=== PATIENT | male | born 1960 | race Caucasian/White ===

== ENCOUNTER 2016-08-11 10:20 | Emergency (ER) | payer BC ==
[~2016-08-11] VITALS: Ht 172.7 cm; Wt 95.5 kg
[2016-08-11 10:21] VITALS: TEMP 36.6; Ht 172.7 cm; Wt 95.5 kg
[2016-08-11] MEDS ORDERED: DULO-24 PO (10:38)
[2016-08-11] MEDS ORDERED: MELO15TA4 PO (10:38)
[2016-08-11] MEDS ORDERED: LISI20TA3 PO (10:38)
[2016-08-11] MEDS ORDERED: TRAM-10 PO (10:38)
[2016-08-11] MEDS ORDERED: FLUT0.15 NAE (10:39)
[2016-08-11] MEDS ORDERED: AMOX875T PO (10:56)
[2016-08-11] MEDS ORDERED: OXYC1TAB3 PO (10:56)
[2016-08-11 11:12] VITALS: BP 136/97; PULSE 86; O2SAT 97
--- NOTE | 2016-08-11 16:58 | EMERGENCY ROOM VISIT NOTE ---
History Report prepared by Mark: Kirsty Gallagher Under the Supervision of: Dr. Tremayne Oconnell M.D. First contact with patient: 10:41 Chief Complaint: FACIAL PAIN/INJURY Stated Complaint: PAIN/INFLAMATION ON RT SIDE OF FACE History of Present Illness The patient is a 56 year old male who presents to the Emergency Room with complaints of persistent right sided face pain starting yesterday. Yesterday he had pain all day which he thought was dental/gum pain. Last night, he started getting swelling on his face and the pain is now located there. He has had this pain before at which time he went to see a dentist. He was prescribed tramadol and his pain resolved. He denies any fever, cold symptoms, testicle pain or swelling, vomiting, abdominal pain, chest pain, or SOB. He is still producing saliva. He has all his immunizations. 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 Source of History: patient Onset: yesterday Position: other (right side face) Quality: other (pain) Timing: other (persistent) Associated Symptoms: No SOB, No abdominal pain, No chest pain, No fevers, No vomiting Note: Pt denies cold symptoms, testicle pain or swelling. Review of Systems See HPI for pertinent positives & negatives. A total of 10 systems reviewed and were otherwise negative. Past Medical & Surgical Medical Problems: (1) Hypertension Family History No pertinent family history stated. Social History Smoking Status: Never Smoker Marital Status: Housing Status: lives with family Occupation Status: employed Current/Historical Medications Scheduled Amoxicillin & Pot Clavulanate (Augmentin 875-125 mg), 875 MG PO BID Duloxetine HCl (Cymbalta), 20 MG PO DAILY Fluticasone Propionate (Nasal) (Flonase Allergy Relief), 2 SPRAY KAREN DAILY Lisinopril (Prinivil), 20 MG PO DAILY Meloxicam (Meloxicam), 15 MG PO UD Scheduled PRN Oxycodone Ir (Roxicodone Ir), 5 MG PO Q4H PRN for Pain Tramadol (Ultram), 50-100 MG PO Q4H PRN for Pain Allergies Coded Allergies: No Known Allergies (Unverified , 08/11/16) Physical Exam Vital Signs Date Time Temp Pulse Resp B/P Pulse Ox O2 Delivery O2 Flow Rate FiO2 08/11/16 11:12 86 20 136/97 97 Room Air 08/11/16 10:21 36.6 81 16 148/97 97 Room Air Physical Exam Constitutional: Vital signs reviewed. Eyes: Pupils are equal round reactive to light. Conjunctiva are noninjected. ENT: Pharynx is clear without erythema or exudate. Mucous membranes are moist. Neck supple without meningeal signs. Some dental caries on the right mandibular teeth. No percussion tenderness. Tenderness to the right lower face along the jawline. No submandibular tenderness. No trismus. No uvular edema or shift. Respiratory: Clear to auscultation bilaterally. Breath sounds are equal bilaterally. Cardiovascular: Regular rate and rhythm. No rubs or gallops. GI: Soft, nondistended and nontender. Bowel sounds are present. Musculoskeletal: No peripheral edema. Integumentary: No cyanosis. Neurological: The patient is awake and alert. No focal deficits. Psychiatric: Normal affect. Medical Decision & Procedures ED Course 1044: The patient was evaluated in room C7. A complete history and physical exam was performed. 1058: I reevaluated the patient. He is resting comfortably. I discussed tonight' s findings with him. I recommended not using tramadol due to the interaction with his SSRI and increased risk of seizure. I prescribed him oxycodone, but advised him not to use it unless he needs it to go to sleep. I discussed the precautions of the medication. He verbalized agreement of the treatment plan. He was discharged home. Medical Decision This is a 56-year-old male who presents with facial pain and swelling. Differential diagnosis includes cellulitis, abscess, periapical abscess, mumps, sialoadenitis, sialolithiasis. I did perform a limited focused review of portions of the patient's old chart on the electronic medical record. The patient has had no prior visits. I did evaluate the patient as noted above. He has a localized swelling to the right jawline. I don't feel any evidence of abscess. He has no symptoms consistent with mumps or any known exposure to mumps. I did discuss the possibility of obtaining CT scan versus antibiotic treatment. The patient and his preferred antibiotic treatment at this time. Should he have any worsening symptoms he will return here for further evaluation in CAT scan. I did discharge patient with a prescription for Augmentin. He was given precautions regarding this medication and will follow closely with his doctor for recheck within 48 hours. [place] Drug Monitoring Program Search Results: patient reviewed within database Drug Monitoring Findings: No matching patients were found. Impression Primary Impression: Facial infection Scribe Attestation The scribe's documentation has been prepared under my direct and personally reviewed by me in its entirety. I confirm that the note above accurately reflects all work, treatment, procedures, and medical decision making performed by me. Departure Information Dispostion Home / Self-Care Prescriptions Oxycodone Ir (Roxicodone Ir) 5 Mg Tab 5 MG PO Q4H Y for Pain, #14 TAB Prov: Tremayne Oconnell M.D. 08/11/16 Amoxicillin & Pot Clavulanate (Augmentin 875-125 mg) 1 Tab Tab 875 MG PO BID for 10 Days, #20 TAB Prov: Tremayne Oconnell M.D. 08/11/16 Referrals No Doctor, Assigned (PCP) Forms HOME CARE DOCUMENTATION FORM, IMPORTANT VISIT INFORMATION Patient Instructions My [facility] Additional Instructions You have been examined and treated today on an emergency basis only. This is not a substitute for, or an effort to provide, complete comprehensive medical care. It is impossible to recognize and treat all injuries or illnesses in a single emergency department visit. It is therefore important that you follow up closely with your physician within 48 hours for recheck. Call as soon as possible for an appointment. Return for worsening symptoms or if you develop fever, vomiting, difficulty breathing, severe headache or any other concerning symptoms.
== END 2016-08-11 11:10 | disposition home or self-care (01) ==
LOC: C.EDB 10:21 → C.EDC 11:10
DX: B99.9 Unspecified infectious disease (principal); I10 Essential (primary) hypertension; Z79.899 Other long term (current) drug therapy

== ENCOUNTER 2018-11-08 15:50 | Inpatient (IN) ==
[2018-11-08] MEDS ORDERED: ONDANSETRON INJ 2 MG/ML 2 ML VIAL IV STA (16:06)
[2018-11-08] MEDS: HYDROmorphone INJ 1 MG/ML SYRINGE IV PRN ×2 (16:33→18:04)
--- NOTE | 2018-11-08 17:03 | XRay Report ---
XR hip RT 2-3V w pelvis CLINICAL HISTORY: fall, right hip pain trauma. Pain. COMPARISON: None. DISCUSSION: Subcapital fracture right hip. No evidence of dislocation. No evidence for acetabular pro trusion. There is no evidence for soft tissue swelling. IMPRESSION: Subcapital fracture right hip The above report was generated using voice recognition software. It may contain grammatical, syntax or spelling errors. Electronically signed by: Ivan Ragland M.D. 11/08/2018 5:02 PM
--- NOTE | 2018-11-08 17:37 | XRay Report ---
XR chest 1V portable CLINICAL HISTORY: hip fx trauma COMPARISON STUDY: None FINDINGS: The bones soft tissues and hemidiaphragms are normal. The cardiomediastinal silhouette is n ormal. The lungs are clear. The pulmonary vasculature is normal. IMPRESSION: Negative chest. The above report was generated using voice recognition software. It may contain grammatical, syntax or spelling errors. Electronically signed by: Ivan Ragland M.D. 11/08/2018 5:36 PM
--- NOTE | 2018-11-08 17:42 | History & Physical Report ---
Date of Service November 08, 2018 Assessment & Plan (1) Fracture of right hip: This is a 58-year-old male with PMH of hypertension and mood disorder who presents after mechanical fall at home onto his right side and was found to have subcapital fracture right hip. -Hemodynamically stable -Hip/pelvis XR with with evidence of subcapital fracture right hip -Evaluated by [facility] orthopedics, who plan for possible OR tomorrow -Lab work today with mild leukocytosis. Creatinine, GFR, coags within normal limits -CXR without acute abnormalities. EKG with sinus rhythm with sinus arrhythmia -Considered low risk based on Revised Cardiac Index for Pre-op Risk, patient with 0.4% risk of major cardiac event -NPO after midnight. Pre-op medication, pain control, IV fluids ordered -Checking CK due to patient lying on ground. If elevated, will increase LR to 150 ml/hr (2) Hypertension: Currently normotensive -Plan to hold lisinopril pre-operatively (3) Mood disorder: Continue Prozac DVT Ppx: SCDs pre-operatively Code status: FULL PCP: [facility] Dispo: Admitted to med/surg. Plan to return home once medically stable. Patient seen in collaboration with Dr. Sage. Please see addendum. History of Present Illness Chief Complaint: Mechanical fall, right hip fracture Primary Care Provider: Shreyas Pruett MD This is a 58-year-old male with PMH of hypertension and mood disorder who presents after mechanical fall at home onto his right side. Patient was walking in the kitchen when he tripped over a dog gate and fell onto his right side. Patient was on the ground for 1.5 hours thinking that pain would improve and he would be able to get up on his own. Eventually patient allowed family to help him into the car come to ED for further evaluation. Patient was found to be hemodynamically stable with evidence of subcapital fracture right hip. ED provider discussed with [facility] orthopedic surgeon on-call, Dr. Phelps, who evaluated the patient on the floor and scheduled OR case for tomorrow. Pain is described as a 9/10 and is located at R lateral hip and medial thigh. Just given second dose of Dilaudid. Denies any numbness or paresthesias distal to right hip. Denies any fever, chills, lightheadedness, visual changes, headache, chest pain, palpitations, shortness of breath, nausea, vomiting, abdominal pain, dysuria, diarrhea or constipation. Denies any history of heart disease. History of ENT surgery in the past and tolerated anesthesia without issue. Allergies Allergy/AdvReac Type Severity Reaction Status Date / Time No Known Allergies Allergy Verified 11/09/18 09:33 Home Medications Home Medications Medication Instructions Recorded Confirmed Type fluoxetine 20 mg PO DAILY 11/08/18 11/08/18 History fluticasone propionate [Flonase 2 spray INTRANASAL DAILY 11/08/18 11/08/18 His tory Allergy Relief] lisinopril 20 mg PO DAILY 11/08/18 11/08/18 History acetaminophen [Tylenol Extra 1,000 mg PO Q8 14 Days #84 tab 11/10/18 Rx Strength] aspirin [Ecotrin Low Strength] 81 mg PO BID 30 Days #60 tab 11/10/18 Rx cefadroxil 500 mg PO BID #60 cap 11/10/18 Rx sennosides-docusate sodium 1 tab PO DAILY PRN #14 tab 11/10/18 Rx [Senokot-S] Past Med/Surg History Medical History Mood disorder (Chronic) Hypertension (Chronic) Surgical History History of ear, nose, and throat (ENT) surgery (Chronic) Family History Other Cancer Social History Preferred Language: Kazakh Communication Ability: Effective 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 Physical Exam Physical Exam: General Appearance: WD/WN, in acute distress from pain, cooperative with interview and exam Head: normocephalic, atraumatic Eyes: normal inspection, PERRL, EOMI ENT: hearing grossly normal, pharynx normal (moist mucous membranes) Neck: supple, no JVD, no adenopathy Respiratory/Chest: lungs clear to auscultation. No wheezes, rales or rhonci. No respiratory distress or accessory muscle use Cardiovascular: regular rate, rhythm, no murmur, normal peripheral pulses Abdomen/GI: normal bowel sounds, soft, non-tender to palpation Extremities/Musculoskelatal: R leg externally rotated. No visible trauma. Did not assess ROM of R hip 2/2 pain. No calf tenderness, normal capillary refill, no pedal edema Neurologic/Psych: alert, normal mood/affect, oriented x 3 Skin: normal color, warm/dry Results & Data Vital Signs (Past 12 Hours) Vital Signs Temp Pulse Pulse Resp BP BP Pulse Ox 11/08/18 17:19 69 14 127/71 95 11/08/18 15:56 36.5 C 58 L 24 106/58 L 97 Laboratory Results Short CBC 11/08/18 Range/Units 17:55 WBC 12.21 H (4.8-10.8) K/uL Hgb 15.1 (14.0-18.0) g/dL Hct 44.4 (42-52) % Plt Count 174 (130-400) K/uL BMP 11/08/18 17:55 Sodium 139 Potassium 3.9 Chloride 107 Carbon Dioxide 24 BUN 16 Creatinine 0.99 Glucose 124 H Calcium 8.4 L Liver Function 11/08/18 Range/Units 17:55 Total Bilirubin 0.7 (0.2-1) mg/dl AST 23 (15-37) U/L ALT 33 (12-78) U/L Alkaline Phosphatase 99 (45-117) U/L Albumin 3.7 (3.4-5.0) gm/dl Diagnostic Findings CXR: IMPRESSION: Negative chest. Hip/Pelvis XR: IMPRESSION: Subcapital fracture right hip ECG Additional Comments: Normal sinus rhythm with sinus arrhythmia Supervising Physician Co-Signing Physician Notes Attending Addendum: Delayed entry Date of service as noted above care coordinated with KAYLEIGH Demarco please refer to her notes for full details, I agree with her notes patient seen and examined, records reviewed by myself as well on exam, patient seen resting in bed, not in distress Has pain on the right hip No chest pain, shortness of breath, dizziness Prodrome during the fall no other symptoms VS noted and reviewed oriented x3, not in distress, speaks in sentences with no effort nor accessory muscle use normal rate, regular rhythm, no murmurs clear breath sounds bilaterally non distended, soft, nontender no bipedal edema, erythema, warmth Right lower extremity externally rotated no neuro deficits WBC 12.21 Hg 15.1 Crea 2.99 Hip x-ray subcapital fracture right hip ASSESSMENT AND PLAN Right hip fracture No medical contraindication to proceed with orthopedic surgery next Orthopedic service consulted Hypertension Lisinopril held to prevent hypotension Pressure monitoring other diagnoses and plan of care as per KAYLEIGH Sage MD (1) Fracture of right hip Encounter type: initial encounter Fracture type: closed Qualified Code(s): S72.001A - Fracture of unspecified part of neck of right femur, initial encounter for closed fracture
[2018-11-08 18:09] LABS: Basophils # (auto) 0.01 K/uL (0-0.2); Basophils % (auto) 0.1 %; Eosinophils # (auto) 0.02 K/uL (0-0.5); Eosinophils % (auto) 0.2 %; Hematocrit (blood only) 44.4 % (42-52); Hemoglobin 15.1 g/dL (14.0-18.0); Immature Granulocytes # (auto) 0.04 K/uL (0.00-0.02); Immature Granulocytes % (auto) 0.3 %; Lymphocytes # (auto) 1.05 K/uL (1.2-3.4); Lymphocytes % (auto) 8.6 %; Mean Corpuscular Volume 84.6 fL (80-100); Mean Platelet Volume 9.4 fL (7.4-10.4); Monocytes # (auto) 0.84 K/uL (0.11-0.59); Monocytes % (auto) 6.9 %; Neutrophils # (auto) 10.25 K/uL (1.4-6.5); Neutrophils % (auto) 83.9 %; Platelet Count 174 K/uL (130-400); RDW Coefficient of Variation 12.6 % (11.5-14.5); RDW Standard Deviation 38.4 fL (36.4-46.3); Red Blood Count 5.25 M/uL (4.7-6.1); White Blood Count 12.21 K/uL (4.8-10.8)
[2018-11-08 18:21] LABS: Partial Thromboplastin Ratio 0.9; Partial Thromboplastin Time 23.4 Seconds (21.0-31.0); Prothrombin Time 10.7 Seconds (9.0-12.0)
[2018-11-08 18:31] LABS: Albumin Level 3.7 gm/dl (3.4-5.0); BUN Creatinine Ratio 16.6 (10-20); Calcium 8.4 mg/dl (8.5-10.1); Creatinine Clr Calc Pharmacy 88.4 ml/min; Est GFR (African American) 95.5; Est GFR (Non-African American) 82.4; Potassium 3.9 mmol/L (3.5-5.1)
[2018-11-08 18:33] LABS: Albumin Globulin Ratio 1.2 (0.9-2); Bilirubin,Total 0.7 mg/dl (0.2-1); Globulin 3.1 gm/dl (2.5-4.0); Total Protein 6.8 gm/dl (6.4-8.2)
[2018-11-08] MEDS ORDERED: BISACODYL 10 MG SUPP PR PRN (18:38)
[2018-11-08] MEDS ORDERED: MAGNESIUM HYDROXIDE SUSP 30 ML UDC PO PRN (18:38)
[2018-11-08] MEDS ORDERED: ONDANSETRON INJ 2 MG/ML 2 ML VIAL IV PRN (18:38)
[2018-11-08] MEDS ORDERED: ACETAMINOPHEN 325 MG TAB PO PRN (18:38)
[2018-11-08] MEDS ORDERED: NALOXONE HCL 0.4 MG/1 ML VIAL/CARP IV PRN (18:38)
[2018-11-08] MEDS: HYDROmorphone INJ 0.5 MG/0.5 ML SYR IV PRN ×2 (18:46→23:35)
--- NOTE | 2018-11-08 19:17 | Emergency Department Note ---
Entered by Kailey Tamayo acting as a scribe for Alphonse Bojorquez MD ED Provider Note CHIEF COMPLAINT: Pain from a fall HISTORY OF PRESENT ILLNESS: The patient is a 58 year old male who presents to the Emergency Room with complaints of pain from a fall that happened approximately two hours ago. The patient's states that the patient was walking around at home when he got tangled up in their dog gate and fell straight to the floor on his right side. The patient's states that the patient was on the floor for an hour b efore they brought him to the ambulance in the back of their truck.The patient reports that the pain is on the inside of his right thigh. The patient expressed that his pain severity is a 12 on a 10 point scale. The patient denies any pelvis surgery. Patient and states he has been in good health recently. Pt denies LOC, headache, fevers, chills, diaphoresis, visual changes, neck pain, chest pain, breathing difficulties, nausea, vomiting, abdominal pain, back pain, melena, hematochezia, urinary symptoms, numbness, weakness, lymphadenopathy, rash, or other complaints. REVIEW OF SYSTEMS: See HPI for pertinent positives and negatives. A total of ten systems were reviewed and were otherwise negative. PMHx/PSHx: High blood pressure Plantar fasciitis SOCIAL HISTORY: Patient lives at home. PHYSICAL EXAM: GENERAL: Awake, alert, uncomfortable, in moderate distress HENT: Normocephalic, atraumatic. Oropharynx unremarkable. EYES: PERRL. Normal conjunctiva. Sclera non-icteric. NECK: Inspection normal. Non-tender. Supple. No nuchal rigidity. FROM. No m asses. RESPIRATORY: Clear to auscultation. No wheezes. No rales. Normal respiratory effort. CARDIAC: Normal rate. Normal rhythm. No murmurs. No rubs. Extremities warm and well perfused. Pulses equal. No JVD. GI: Soft, non-distended. No tenderness to palpation. No rebound or guarding. No masses. RECTAL: Deferred. MUSCULOSKELETAL: Atraumatic. Chest examination reveals no tenderness. The back is symmetrical on inspection without obvious abnormality. There is no CVA tenderness to palpation. No joint edema. LOWER EXTREMITIES: Tenderness in the medial proximal thigh. Mild tenderness over the lateral aspect of the right hip. Right foot lower leg knee non tender and no pain. Calves are equal size bilaterally and non-tender. No edema. No discoloration. NEURO: Normal sensorium. No sensory or motor deficits noted. SKIN: No rash or jaundice noted. EMERGENCY DEPARTMENT COURSE: 1603: Past medical records reviewed. The patient was evaluated in room B5, and a complete history and physical examination were performed. 1734: I reassessed the patient who appears comfortable and is resting. I discussed the patient's results with him and his family who were both agreeable with admission. 1726: I reviewed the patient's case with Dr. Phelps - Orthopedics. They will evaluate the patient for further management. 1730: I reviewed the patient's case with Shira VICTOR who has stated that Dr. Jn Olvera will be admitting him. MEDICAL DECISION MAKING: B5 Triage Nursing notes reviewed and agree them. Additional history obtained from the patient's . The patient's history was concerning for traumatic injury. Differential diagnosis: Etiologies such as fracture, dislocation, neurovascular compromise, compartment syndrome, soft tissue injury, as well as others were entertained. Physical examination: Consistent with an isolated hip injury. ER treatment provided: IV lock Zofran 4mg IV Dilaudid 1 mg IV as needed NPO Bedrest On reassessment the patient felt better. Diagnostics interpreted by me: ECG: Normal sinus rhythm. The labs revealed an unremarkable CBC, coags, and chemistry panel. Imaging studies: X-ray imaging of the chest and right hip were performed. There is a subcapital right hip fracture. Chest x-ray negative. The patient has an isolated hip fracture and will need admission to the hospital. Consultation: A consultation was placed with orthopedics, Dr. Clarence Phelps. The case was discussed and diagnostics were reviewed. He will consult on the patient. Consultation was made with internal medicine. The patient was evaluated in the ER for further treatment. IMPRESSION: Right hip fracture PLAN: Being evaluated by hospitalist The scribe's documentation has been prepared under my direction and personally reviewed by me in its entirety. I confirm that the note above accurately reflects all work, treatment, procedures, and medical decision making performed by me. 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 Beliefs That Will Affect Care: [employer] Beliefs: [employer] Current Living Situation: Spouse Other Information That Helps Us Care for You: No Feels Safe at Home: Yes Safety Concerns: Feels Safe At This Time Smoking Status: Never smoker Do You Dip or Chew Tobacco: No Second Hand Exposure: No Tobacco Cessation Education Requested by Patient: No Hx Alcohol Use: No Hx Substance Use: No Results & Data Vital Signs Vital Signs - 24 hr 11/08/18 15:56 11/08/18 16:06 11/08/18 17:19 Temperature 36.5 C Temperature Source Oral Sepsis Recent Fever Within 48 Hours No Sepsis New/Unexplained Change in Mental Status No Sepsis Action Taken by Nursing No Action Required Pulse Rate 58 L Pulse Rate [Right Finger] 69 Respiratory Rate 24 14 Respiratory Effort / Characteristics Non-Labored Spontaneous Respiratory Depth Normal Respiratory Pattern Regular Blood Pressure 106/58 L Blood Pressure [Left Arm] 127/71 Blood Pressure Mean 74 Blood Pressure Mean [Left Arm] 89 Blood Pressure Position [Left Arm] Lying Pulse Oximetry 97 95 Oxygen Delivery Method Room Air Room Air Room Air Home Medications Current Medication List: was personally reviewed by me Laboratory Data Attestation: I reviewed the patient's lab results. Result diagrams: 11/08/18 17:55 11/08/18 17:55 Lab Results 11/08/18 Range/Units 17:55 WBC 12.21 H (4.8-10.8) K/uL RBC 5.25 (4.7-6.1) M/uL Hgb 15.1 (14.0-18.0) g/dL Hct 44.4 (42-52) % MCV 84.6 (80-100) fL MCH 28.8 (25-34) pg MCHC 34.0 (32-36) g/dL RDW Std Deviation 38.4 (36.4-46.3) fL RDW Coeff of Mathew 12.6 (11.5-14.5) % Plt Count 174 (130-400) K/uL MPV 9.4 (7.4-10.4) fL Immature Gran % (Auto) 0.3 % Neut % (Auto) 83.9 % Lymph % (Auto) 8.6 % Rock % (Auto) 6.9 % Eos % (Auto) 0.2 % Baso % (Auto) 0.1 % Immature Gran # (Auto) 0.04 H (0.00-0.02) K/uL Neut # (Auto) 10.25 H (1.4-6.5) K/uL Lymph # (Auto) 1.05 L (1.2-3.4) K/uL Rock # (Auto) 0.84 H (0.11-0.59) K/uL Eos # (Auto) 0.02 (0-0.5) K/uL Baso # (Auto) 0.01 (0-0.2) K/uL Administered Medications Hydromorphone HCl (Dilaudid) 0.5 mg IV Q3H PRN PRN Reason: Pain Stop: 11/22/18 18:37 Last Admin: 11/08/18 18:46 Dose: 0.5 mg Documented by: [id number] Lactated Ringer's (Lr) 1,000 mls @ 100 mls/hr IV .Q10H CHRISTOPH Stop: 12/09/18 00:00 Last Admin: 11/08/18 19:13 Dose: 100 mls/hr Documented by: [id number] Discontinued Medications Hydromorphone HCl (Dilaudid) 1 mg IV Q15M PRN PRN Reason: Pain Stop: 11/22/18 16:05 Last Admin: 11/08/18 18:04 Dose: 1 mg Documented by: [id number] Admin: 11/08/18 16:33 Dose: 1 mg Documented by: [id number] Ondansetron HCl (Zofran) 4 mg IV NOW STA Stop: 11/08/18 16:07 Last Admin: 11/08/18 16:33 Dose: 4 mg Documented by: [id number] Imaging Data Radiologist's Impression: Radiology results as stated below per my review and the radiologist's interpretation: XR hip RT 2-3V w pelvis CLINICAL HISTORY: fall, right hip pain trauma. Pain. COMPARISON: None. DISCUSSION: Subcapital fracture right hip. No evidence of dislocation. No evidence for acetabular protrusion. There is no evidence for soft tissue swelling. IMPRESSION: Subcapital fracture right hip The above report was generated using voice recognition software. It may contain grammatical, syntax or spelling errors. Electronically signed by: Ivan Ragland M.D. 11/08/2018 5:02 PM XR chest 1V portable CLINICAL HISTORY: hip fx trauma COMPARISON STUDY: None FINDINGS: The bones soft tissues and hemidiaphragms are normal. The cardiomed iastinal silhouette is normal. The lungs are clear. The pulmonary vasculature is normal. IMPRESSION: Negative chest. The above report was generated using voice recognition software. It may contain grammatical, syntax or spelling errors. Electronically signed by: Ivan Ragland M.D. 11/08/2018 5:36 PM ECG Data Attestation: I personally reviewed and interpreted this ECG as follows: Indication: other (Fall) Rate (beats per minute): 66 Rhythm: normal sinus Findings: no PAC, no PVC, no ST depression and no ST elevation Blood Pressure Blood Pressure Findings: Normal blood pressure Discharge Plan Visit Data *Final* Discharge Date/Time: 11/08/18 18:19 Chief Complaint: Fall Stated Complaint: FALL, PAIN IN GROIN ED Provider: Alphonse Bojorquez Discharge Problem: Fracture of right hip Patient Disposition: Admitted As Inpatient Discharge Instructions Interventions: ED Discharge Assessment Last Done: 11/08/18 18:19 Discharge Problem: Fracture of right hip Qualifiers: Encounter type: initial encounter Fracture type: closed Qualified Code(s): S72.001A - Fracture of unspecified part of neck of right femur, initial encounter for closed fracture The scribe's documentation has been prepared under my direction and personally reviewed by me in its entirety. I confirm that the note above accurately reflects all work, treatment, procedures, and medical decision making performed by me.
[2018-11-08] MEDS ORDERED: CEFAZOLIN 2000MG 2,000 MG/15 ML SYR IV ONE (19:32)
[2018-11-08] MEDS ORDERED: HYDROmorphone INJ 0.5 MG/0.5 ML SYR IV STA (20:40)
[2018-11-08] MEDS ORDERED: DOCUSATE SODIUM/SENNA 50/8.6MG TAB PO SCH (21:00)
[2018-11-09] MEDS ORDERED: LACTATED RINGER'S 1,000 ML IV SCH
--- NOTE | 2018-11-09 00:10 | Consultation Report ---
DATE OF CONSULTATION: 11/08/2018 Special attention to right hip fracture. HISTORY OF PRESENT ILLNESS: This is a 58-year-old gentleman who has complaints of mechanical fall which occurred earlier today. He states his foot got tangled in a gate and he fell straight onto his right side. He denies any pain or problems with the hip prior to this injury. He states that he is normally active, able to run and ambulate without any difficulty or problems. He denies any other injury. He notes pain in the right hip with inability to bear weight. PAST MEDICAL HISTORY: High blood pressure, plantar fasciitis. PHYSICAL EXAMINATION: Right lower extremity exam, calves compartments are soft. Thigh shows no ecchymosis and no open injuries. He has 5/5 plantar flexion and plantar extension and foot is warm and well perfused. He has mild tenderness and pain with log roll. ASSESSMENT: A 58-year-old active male with: Right displaced femoral neck fracture. PLAN: Radiographs show a subcapital right hip fracture. I discussed with him and the family surgical treatment. Recommendation will be for a total hip versus hemiarthroplasty. Given his active age, it is likely that a total hip replacement would be preferred PAST MEDICAL HISTORY: Hypertension. MEDICATIONS: Fluoxetine 20 mg daily, Flonase, lisinopril, and Meloxicam. PLAN: I listed Mr. Elizabeth for OR tomorrow for a right total hip replacement. Likely case will be performed by Dr. Rosen if available. I discussed risks, benefits, reasonable outcomes and expectations with the patient including but not limited to risk of leg length discrepancy, nerve injury, dislocation, need for revision, etc. The patient is agreeable and wishes to proceed. Surgical consent is placed on the chart. He will be n.p.o. after midnight. Coagulation studies are normal and I do not see medical contraindications to surgical treatment.
[2018-11-09] MEDS: HYDROmorphone INJ 0.5 MG/0.5 ML SYR IV PRN ×2 (03:05→06:22)
[2018-11-09] MEDS: LACTATED RINGER'S 1,000 ML IV SCH ×2 (04:25→13:48)
[2018-11-09] MEDS ORDERED: CEFAZOLIN 2000MG 2,000 MG/15 ML SYR IV SCH (06:00)
[2018-11-09 06:57] LABS: Hematocrit (blood only) 41.1 % (42-52); Hemoglobin 13.7 g/dL (14.0-18.0); Mean Corpuscular Hgb Conc 33.3 g/dL (32-36); Mean Corpuscular Volume 85.6 fL (80-100); Mean Platelet Volume 9.4 fL (7.4-10.4); Platelet Count 161 K/uL (130-400); RDW Coefficient of Variation 12.6 % (11.5-14.5); RDW Standard Deviation 39.7 fL (36.4-46.3)
--- NOTE | 2018-11-09 07:13 | Orthopedic Progress Note ---
Date of Service November 09, 2018 Assessment & Plan (1) Fracture of right hip: I met with patient personally this morning. And I discussed the treatment options treatment option is #1 to do nothing which would cause him increased pain and difficulty ambulation. Ultimately the best in the do is to perform a arthroplasty of the right hip and given his age I would recommend a full total hip arthroplasty. We did discuss the possibly of a bipolar hemiarthroplasty but I did tell him that his age activity level that he may likely wear the acetabular area and likely require revision to a total hip replacement therefore its best just to do the replacement at this point time. All the risk of the surgery were discussed the patient entirety and despite those risks the benefits far outweigh those risks and he wants to proceed with the operation today. He will be on aspirin for DVT prophylaxis and just like any standard total hip replacement he will be able to weight-bear today with physical therapy tomorrow the same thing and if he feels good tomorrow there is no need for him to require rehab stay he would likely be discharged tomorrow to home with home therapy. In my signed the consent together and I found out later that the consent was already performed by 1 of my partners but regardless they are completed. Subjective Patient with pain in his right hip. Physical Exam Constitutional: WD/WN, vitals as above Musculoskeletal: Pain with any attempt at range of motion right hip right leg is slightly shortened and externally rotated. Results & Data Vital Signs (Past 12 Hours) Vital Signs Temp Pulse Resp BP Pulse Ox 11/08/18 23:13 37.0 C 68 16 116/75 94 (1) Fracture of right hip Encounter type: initial encounter Fracture type: closed Qualified Code(s): S72.001A - Fracture of unspecified part of neck of right femur, initial encounter for closed fracture
[2018-11-09] MEDS: FLUTICASONE PROPIONATE NA SPR 16 GM BTL NAE SCH (07:37)
[2018-11-09] MEDS: FLUOXETINE HCL 20 MG CAP PO SCH (07:38)
[2018-11-09 07:39] LABS: BUN Creatinine Ratio 18.4 (10-20); Calcium 7.7 mg/dl (8.5-10.1); Creatinine Clr Calc Pharmacy 88.4 ml/min; Est GFR (African American) 95.5; Est GFR (Non-African American) 82.4; Potassium 3.7 mmol/L (3.5-5.1)
[2018-11-09] MEDS ORDERED: ROPIVACAINE 0.5% 5 MG/ML 30 ML VIAL ONE (07:40)
[2018-11-09] MEDS ORDERED: BUPIVACAINE 0.5 % 5 MG/1 ML PF 10ML VIAL ONE (07:40)
--- NOTE | 2018-11-09 09:07 | Anesthesiology Consultation ---
Date of Service November 09, 2018 Assessment & Plan (1) Encounter for pre-operative examination: Chart Review Chart Review: Acceptable Risk for Surgery History Surgery Operation Date: 11/09/18 13:00 Proposed Procedures p Right Total Hip Arthroplasty Uncemented - Saroj S Silas Height/Weight Height: 5 ft 8 in Weight: 94.3 kg Allergies Allergy/AdvReac Type Severity Reaction Status Date / Time No Known Allergies Allergy Verified 11/08/18 16:21 Medications Home Medications Medication Instructions Recorded Confirmed Last Taken fluoxetine 20 mg PO DAILY 11/08/18 11/08/18 Unknown fluticasone propionate [Flonase 2 spray INTRANASAL DAILY 11/08/18 11/08/18 Unknown Allergy Relief] lisinopril 20 mg PO DAILY 11/08/18 11/08/18 11/07/18 meloxicam 15 mg PO DAILY 11/08/18 11/08/18 11/08/18 Active Medications Generic Name Dose Route Start Last Admin Trade Name Freq PRN Reason Stop Dose Admin Fluoxetine HCl 20 mg 11/09/18 09:00 11/09/18 07:38 Prozac PO 12/09/18 08:59 20 mg DAILY CHRISTOPH Administration Fluticasone Propionate 2 sprays 11/09/18 09:00 11/09/18 07:37 Flonase KAREN 12/09/18 08:59 2 sprays DAILY CHRISTOPH Administration Hydromorphone HCl 0.5 mg 11/08/18 18:38 11/09/18 06:22 Dilaudid IV 11/22/18 18:37 0.5 mg Q3H PRN Administration Pain Lactated Ringer's 1,000 mls @ 100 mls/hr 11/08/18 21:40 11/09/18 04:25 Lr IV 12/08/18 21:39 100 mls/hr .Q10H CHRISTOPH Administration Senna/Docusate Sodium 2 tab 11/08/18 21:00 11/08/18 20:55 Senokot S PO 12/08/18 20:59 2 tab HS CHRISTOPH Administration NPO Date Last Intake of Fluids: 11/08/18 Time Last Intake of Fluids: 23:00 Last Intake of Fluids Comment: allowed sips/chips. Date Last Intake of Solids: 11/08/18 Time Last Intake of Solids: 22:45 Last Intake of Solids Comment: prior to shift. Past Medical History Medical History Mood disorder (Chronic) Hypertension (Chronic) Past Family History Family History Other Cancer Past Surgical History Surgical History History of ear, nose, and throat (ENT) surgery (Chronic) Social History Smoking Status: Never smoker Do You Dip or Chew Tobacco: No Hx Alcohol Use: No Hx Substance Use: No substance use type: does not use Physical Exam Vital Signs Last Vital Signs Temp 37.2 C 11/09/18 07:46 Pulse 74 11/09/18 07:46 Resp 18 11/09/18 07:46 BP 116/74 11/09/18 07:46 Pulse Ox 91 11/09/18 07:46 Testing Laboratory Results 11/09/18 06:36 11/09/18 06:36 PT 10.7 Seconds (9.0-12.0) 11/08/18 17:55 INR 1.0 (0.9-1.1) 11/08/18 17:55 APTT 23.4 Seconds (21.0-31.0) 11/08/18 17:55 Blood Type A Positive 11/08/18 19:07 Antibody Screen NEGATIVE 11/08/18 19:07 Electrocardiogram Date: 11/08/18 Findings: + NSR @ (66) Chest X-Ray Date: 11/08/18 Findings: + NAD
[2018-11-09] MEDS ORDERED: PROPOFOL IV EMULSION 10 MG/ML 20 ML VIAL IV ONE ×2 (09:36→11:47)
[2018-11-09] MEDS ORDERED: MIDAZOLAM HCL 1 MG/ML 2ML VIAL ONE ×2 (09:36→10:55)
[2018-11-09] MEDS ORDERED: fentaNYL citrate 100 MCG/2 ML VIAL ONE (09:39)
[2018-11-09] MEDS ORDERED: ACETAMINOPHEN 500 MG TAB ONE (09:44)
[2018-11-09] MEDS ORDERED: HYDROmorphone INJ 1 MG/ML SYRINGE IV PRN (10:47)
[2018-11-09] MEDS ORDERED: ONDANSETRON INJ 2 MG/ML 2 ML VIAL IV PRN ×2 (10:47→13:44)
[2018-11-09] MEDS ORDERED: ePHEDrine sulfate 50 MG/ML AMP IV PRN (10:47)
[2018-11-09] MEDS ORDERED: KETOROLAC 30 MG/ML VIAL IV PRN (10:47)
[2018-11-09] MEDS ORDERED: ATROPINE SULFATE 0.1 MG/ML 10ML SYR IV PRN (10:47)
[2018-11-09] MEDS ORDERED: BACITRACIN INJ 50,000 UNIT VIAL ONE (10:53)
[2018-11-09] MEDS ORDERED: ORTHO JOINT ANESTHETIC ONE (10:53)
[2018-11-09] MEDS ORDERED: ACETAMINOPHEN 500 MG TAB PO SCH (11:15)
[2018-11-09] MEDS ORDERED: ROPIVACAINE 0.5% HCL/PF 150 MG, BUPIVACAINE 0.5% MPF 30 ML, EPINEPHrine 30MG/30ML (OR U... INFIL SCH (11:15)
[2018-11-09] MEDS ORDERED: TRANEXAMIC ACID 1,000 MG **IV Pre-op IV SCH (11:15)
[2018-11-09] MEDS ORDERED: TRANEXAMIC ACID 1,000 MG **IV Intra-op IV SCH (11:30)
[2018-11-09] MEDS ORDERED: DEXAMETHASONE SOD INJ 4 MG/ML VIAL ONE (11:42)
[2018-11-09] MEDS ORDERED: ONDANSETRON INJ 2 MG/ML 2 ML VIAL ONE (11:42)
[2018-11-09] MEDS ORDERED: ePHEDrine sulfate 50 MG/ML SYR ONE (12:01)
--- NOTE | 2018-11-09 12:42 | Operative Report ---
Post Operative Report Pre & Post Diagnosis Operation Date: 11/09/18 13:00 Pre-Op Diagnosis: Right HIP FRACTURE, femoral neck displaced Post-Op Diagnosis: Right HIP FRACTURE, femoral neck displaced Procedure Operation Date: 11/09/18 13:00 Actual Procedures p Right Total Hip Arthroplasty Uncemented(Right) - Saroj Rosen Surgeon Saroj Rosen Sat Tutor Isreal Malhotra PA-C Estimated Blood Loss 40 Findings Consistent with Post-Op Diagnosis Specimens None Complications none Disposition Disposition: Recovery Room Description of Procedure IMPLANTS USED: Laurel size 52 mm Trident 2 Tritanium acetabular cup, one acetabular screw, a 36 mm X3 elevated liner, a #7 Accolade 2 stem with a 127 degree neck and a 36 mm -5 ceramic head INDICATIONS: Mr. Elizabeth is a pleasant male who has unfortunately took a fall and sustained a displaced right femoral neck fracture. Therefore, they have has decided to undergo elective surgical intervention. All risks and benefits of the surgery were discussed with the patient and the family in entirety. PROCEDURE: The patient was brought to the operating room and properly identified by myself, anesthesia, and staff. Patient was given a spinal anesthetic and placed on the operating table with the right hip up. The hip was then prepped and draped in the standard orthopedic fashion. We made a standard posterolateral approach over the greater trochanteric area. We then dissected down to subcutaneous tissue until the fascia was identified. We incised the fascia in line with the skin incision. We then split the gluteus hipolito muscles with finger dissection. We then put the Charnley retractor in place. We placed the retractor underneath the gluteus medius to expose the piriformis. The piriformis was then tagged with a tag suture and released from the insertion from the greater trochanteric area with the use of electrocautery. We then performed a T capsulotomy and the femoral head and neck were atraumatically dislocated, and the fracture hematoma was evacuated. The fractured femoral head and neck were comminuted. Then made a cleanup cut on the femoral neck. We removed the femoral head and neck without difficulty. We then placed the retractor around the acetabulum. We then began to ream the acetabulum to the appropriate size. We then impacted the cup into place and had a very good fixation within the pelvis. We then put the liner in place as well. Then using multiple size approaches from the Accolade 2 system a size #7 fit very nicely in the proximal femur. I then put trial components in place. WE had very good range of motion, excellent stability, and excellent leg length equality. We removed the trial components and irrigated the wound. We then impacted the components in place and irrigated the wound once more. We then closed the capsule and fascia with a 0 Vicryl suture, the deep dermis with 2-0 Vicryl suture, and finally the skin with a running 3-0 Vicryl subcuticular stitch. A sterile dressing was applied. The patient was taken to the recovery room in stable condition. Due to the complex nature of the procedure, the entire surgery was performed with the operational assistance of Isreal Malhotra PA-C. The law office assistant was under direct supervision, was involved in the actual performance of all aspects of the surgical procedure including hemostasis, tissue retraction and incision, instrument management, patient positioning, and wound closure. I attest to the content of the Intraoperative Record and any orders documented therein. Any exceptions are noted below.
--- NOTE | 2018-11-09 13:29 | Anesthesiology Progress Note ---
Date of Service November 09, 2018 Anesthesia Post Procedure Vital Signs Vital Signs: Temp Pulse Pulse Pulse Resp BP BP 11/09/18 13:20 73 16 11/09/18 13:10 64 64 14 11/09/18 13:01 36.4 C L 67 67 17 11/09/18 09:34 36.8 C 73 20 11/09/18 07:46 37.2 C 74 18 116/74 11/08/18 23:13 37.0 C 68 16 116/75 11/08/18 18:40 36.8 C 65 17 129/78 11/08/18 18:00 73 20 116/76 11/08/18 17:19 69 14 127/71 11/08/18 15:56 36.5 C 58 L 24 106/58 L BP Pulse Ox 11/09/18 13:20 106/70 96 11/09/18 13:10 123/67 100 11/09/18 13:01 108/72 98 11/09/18 09:34 113/62 92 11/09/18 07:46 91 11/08/18 23:13 94 11/08/18 18:40 95 11/08/18 18:00 95 11/08/18 17:19 95 11/08/18 15:56 97 Pain Intensity Right Groin: Pain Intensity: 10 Right Hip: Pain Intensity: 10 Transfer of Care Handoff Completed per policy Notes Mental Status: alert / awake / arousable Patient Amnestic to Procedure: Yes Nausea / Vomiting: adequately controlled Pain: adequately controlled Airway Patency, RR, SpO2: stable & adequate BP & HR: stable & adequate Hydration State: stable & adequate Anesthetic Complications: no major complications apparent
[2018-11-09] MEDS ORDERED: TRAMADOL HCL 50 MG TABLET PO PRN (13:44)
[2018-11-09] MEDS ORDERED: BISACODYL 10 MG SUPP PR PRN (13:44)
[2018-11-09] MEDS ORDERED: NALOXONE HCL 0.4 MG/1 ML VIAL/CARP IV PRN (13:44)
[2018-11-09] MEDS ORDERED: OXYCODONE HCL IR 5 MG TAB (IMMEDIATE RELEASE) PO PRN (13:44)
[2018-11-09] MEDS ORDERED: MAGNESIUM HYDROXIDE SUSP 30 ML UDC PO PRN (13:44)
[2018-11-09] MEDS ORDERED: METOCLOPRAMIDE HCL INJ 5 MG/ML 2 ML VIAL IV PRN (13:44)
[2018-11-09] MEDS: SODIUM CHLORIDE 0.9% 1000ML 1,000 ML IV SCH (14:14)
[2018-11-09] MEDS: ACETAMINOPHEN 500 MG TAB PO SCH ×2 (14:15→20:18)
[2018-11-09] MEDS ORDERED: TRANEXAMIC ACID 1,000 MG in 0.9 % SODIUM CHLORIDE 100 ML IV SCH (18:30)
--- NOTE | 2018-11-09 18:50 | Hospitalist Progress Note ---
Date of Service November 09, 2018 Assessment & Plan (1) Fracture of right hip: This is a 58-year-old male with PMH of hypertension and mood disorder who presents after mechanical fall at home onto his right side and was found to have subcapital fracture right hip. s/p Arthoplasty stable overall DVT prophylaxis per Ortho pain manamagement PT/OT may need Rehab (2) Hypertension: Currently normotensive -hold Lisinopril for now (3) Mood disorder: Continue Prozac DVT Ppx: SCDs Code status: FULL PCP: [facility] Dispo: Admitted to med/surg. Plan to return home once medically stable. Subjective ff up for hip fracture seen resting in bed, comfortable s/p Orthoplasty in good spirits mild discomfort on R hip surgical site no chest pain, dyspnea, palpitations, dizziness no other symptoms Review of Systems Review of Systems: All systems reviewed & are unremarkable except as noted in HPI & below Physical Exam Physical Exam: General- oriented x 3, not in distress, speaks in sentences with no effort or accessory muscle use Eyes- anicteric Neck- no JVD Lungs- clear breath sounds bilaterally, no rales/wheezes Heart- normal rate, regular rhythm; no murmurs Abdomen- normal bowel sounds, nondistended, soft, nontender Extremities- no pretibial edema, no calf tenderness Right hip- SKYLER drain in place- minimal serosanguinous output Neuro- alert, oriented x 3; no gross focal neurologic deficits Skin- warm & dry Results & Data Vital Signs (Past 12 Hours) Vital Signs Temp Pulse Pulse Resp BP BP Pulse Ox 11/09/18 16:20 36.9 C 91 H 17 107/55 L 94 11/09/18 15:31 36.6 C 78 17 126/66 95 11/09/18 14:19 81 17 133/86 94 11/09/18 13:52 36.4 C L 74 18 111/17 L 87 L 11/09/18 13:40 37 C 78 14 107/82 93 11/09/18 13:30 36.5 C 73 16 108/70 94 11/09/18 13:20 73 16 106/70 96 11/09/18 13:10 64 64 14 123/67 100 11/09/18 13:01 36.4 C L 67 67 17 108/72 98 11/09/18 09:34 36.8 C 73 20 113/62 92 11/09/18 07:46 37.2 C 74 18 116/74 91 (1) Fracture of right hip Encounter type: initial encounter Fracture type: closed Qualified Code(s): S72.001A - Fracture of unspecified part of neck of right femur, initial encounter for closed fracture
[2018-11-09] MEDS: DOCUSATE SODIUM 100 MG CAP PO SCH (20:18)
[2018-11-09] MEDS: CEFAZOLIN 2000MG 2,000 MG/15 ML SYR IV SCH (20:18)
[2018-11-09] MEDS ORDERED: SENNA 8.6 MG TAB PO SCH (21:00)
[2018-11-10] MEDS: SODIUM CHLORIDE 0.9% 1000ML 1,000 ML IV SCH (00:05)
[2018-11-10] MEDS: CEFAZOLIN 2000MG 2,000 MG/15 ML SYR IV SCH (03:39)
[2018-11-10] MEDS: ACETAMINOPHEN 500 MG TAB PO SCH ×2 (05:54→13:55)
[2018-11-10] MEDS ORDERED: dexAMETHasone 10 MG in SYRINGE 0 ML IV SCH (08:00)
--- NOTE | 2018-11-10 08:03 | Anesthesiology Progress Note ---
Date of Service November 10, 2018 Anesthesia Post Procedure Vital Signs Vital Signs: Temp Pulse Pulse Resp BP BP Pulse Ox 11/10/18 07:06 36.7 C 69 16 116/72 92 11/10/18 03:27 37.1 C 80 16 119/75 92 11/09/18 22:49 37.0 C 75 16 113/62 92 11/09/18 19:24 37.1 C 84 17 126/58 L 96 11/09/18 16:20 36.9 C 91 H 17 107/55 L 94 11/09/18 15:31 36.6 C 78 17 126/66 95 11/09/18 14:19 81 17 133/86 94 11/09/18 13:52 36.4 C L 74 18 111/17 L 87 L 11/09/18 13:40 37 C 78 14 107/82 93 11/09/18 13:30 36.5 C 73 16 108/70 94 11/09/18 13:20 73 16 106/70 96 11/09/18 13:10 64 64 14 123/67 100 11/09/18 13:01 36.4 C L 67 67 17 108/72 98 11/09/18 09:34 36.8 C 73 20 113/62 92 Pain Intensity Right Groin: Pain Intensity: 10 Right Hip: Pain Intensity: 0 Notes Mental Status: alert / awake / arousable and participated in evaluation Patient Amnestic to Procedure: Yes Nausea / Vomiting: adequately controlled Pain: adequately controlled Airway Patency, RR, SpO2: stable & adequate BP & HR: stable & adequate Hydration State: stable & adequate Neuraxial Anesthesia: was administered and sensory block resolved Anesthetic Complications: no major complications apparent and Pt Satisfied with anesthetic care
[2018-11-10 08:10] LABS: ALC (manual) 0.94 K/uL (1.2-3.4); Hematocrit (blood only) 37.2 % (42-52); Hemoglobin 12.3 g/dL (14.0-18.0); Lymphocytes # (manual) 0.94 K/uL (1.2-3.4); Lymphocytes % (manual) 7.8 %; Mean Corpuscular Hgb Conc 33.1 g/dL (32-36); Mean Corpuscular Volume 85.7 fL (80-100); Mean Platelet Volume 9.3 fL (7.4-10.4); Monocytes # (manual) 1.05 K/uL (0.11-0.59); Monocytes % (manual) 8.7 %; Neutrophils % (manual) 83.5 %; Platelet Count 158 K/uL (130-400); RBC Morphology Unremarkable; RDW Coefficient of Variation 12.6 % (11.5-14.5); RDW Standard Deviation 39.6 fL (36.4-46.3); Red Blood Count 4.34 M/uL (4.7-6.1); White Blood Count 12.07 K/uL (4.8-10.8)
[2018-11-10] MEDS: FLUTICASONE PROPIONATE NA SPR 16 GM BTL NAE SCH (08:32)
[2018-11-10] MEDS: DOCUSATE SODIUM 100 MG CAP PO SCH (08:32)
[2018-11-10] MEDS: FLUOXETINE HCL 20 MG CAP PO SCH (08:32)
[2018-11-10 08:37] LABS: BUN Creatinine Ratio 15.5 (10-20); Calcium 7.9 mg/dl (8.5-10.1); Creatinine Clr Calc Pharmacy 87.5 ml/min; Est GFR (African American) 94.4; Est GFR (Non-African American) 81.4; Potassium 4.3 mmol/L (3.5-5.1)
[2018-11-10] MEDS ORDERED: MULTIVITAMIN TAB PO SCH (09:00)
[2018-11-10] MEDS ORDERED: LISINOPRIL 20 MG TAB PO SCH (09:00)
--- NOTE | 2018-11-10 10:24 | Orthopedic Progress Note ---
Date of Service November 10, 2018 Assessment & Plan (1) Fracture of right hip: 58 yo male stable POD #1 s/p right SHAQUILLE secondary to fracture 1. Med management 2. DVT prophylaxis- ASA bid x 28 days, SCDs 3. PT/OT- SHAQUILLE precautions, WBAT w/ walker 4. D/C planning- home w/ HH when stable per medicine, f/u with Dr Rosen in [place] in 10-14 days Subjective Pt currently walking the hallway with PT. He states minimal pain. Physical Exam Physical Exam: Toes mobile, N/V/I, dressing and drain in place Results & Data Vital Signs (Past 12 Hours) Vital Signs Temp Pulse Pulse Resp BP Pulse Ox 11/10/18 07:06 36.7 C 69 16 116/72 92 11/10/18 03:27 37.1 C 80 16 119/75 92 11/09/18 22:49 37.0 C 75 16 113/62 92 Laboratory Results 11/10/18 11/10/18 11/09/18 Range/Units 07:13 07:13 06:36 WBC 12.07 H (4.8-10.8) K/uL RBC 4.34 L (4.7-6.1) M/uL Hgb 12.3 L (14.0-18.0) g/dL Hct 37.2 L (42-52) % MCV 85.7 (80-100) fL MCH 28.3 (25-34) pg MCHC 33.1 (32-36) g/dL RDW Std Deviation 39.6 (36.4-46.3) fL RDW Coeff of Mathew 12.6 (11.5-14.5) % Plt Count 158 (130-400) K/uL MPV 9.3 (7.4-10.4) fL Neutrophils % (Manual) 83.5 % Lymphocytes % (Manual) 7.8 % Monocytes % (Manual) 8.7 % Neutrophils # (Manual) 10.08 H (1.4-6.5) K/uL Total Absolute Neuts 10.08 H (1.4-6.5) K/uL Lymphocytes # (Manual) 0.94 L (1.2-3.4) K/uL Total Abs Lymphocytes 0.94 L (1.2-3.4) K/uL Monocytes # (Manual) 1.05 H (0.11-0.59) K/uL RBC Morphology Unremarkable Sodium 141 (136-145) mmol/L Potassium 4.3 D (3.5-5.1) mmol/L Chloride 109 H (98-107) mmol/L Carbon Dioxide 26 (21-32) mmol/L Anion Gap 6.0 (3-11) BUN 15 (7-18) mg/dl Creatinine 1.00 (0.6-1.4) mg/dl Est Cr Clr Drug Dosing 87.5 ml/min Est GFR ( Amer) 94.4 Est GFR (Non-Af Amer) 81.4 BUN/Creatinine Ratio 15.5 (10-20) Glucose 115 H (70-99) mg/dl Calcium 7.9 L (8.5-10.1) mg/dl Hepatitis C Ab Screen Neg (Neg) (1) Fracture of right hip Encounter type: initial encounter Fracture type: closed Qualified Code(s): S72.001A - Fracture of unspecified part of neck of right femur, initial encounter for closed fracture
[2018-11-10] MEDS ORDERED: ASPIRIN 81 MG ECTAB PO SCH (21:00)
--- NOTE | 2018-11-11 12:01 | Hospitalist Progress Note ---
Date of Service November 11, 2018 Assessment & Plan (1) Fracture of right hip: This is a 58-year-old male with PMH of hypertension and mood disorder who presents after mechanical fall at home onto his right side and was found to have subcapital fracture right hip. s/p Arthoplasty November 09, 2018 Remained stable overall DVT prophylaxis per Ortho: Aspirin twice a day Evaluated by PT OT, discharge to home with home services Follow-up with Ortho in 10 to 14 days Positive constipation, Senokot as prescribed Advised to drink plenty fluids, high-fiber diet, call primary care physician if with no improvement in 1 to 2 days (2) Hypertension: Resume lisinopril Follow-up with PCP as scheduled (3) Mood disorder: Continue Prozac DVT Ppx: SCDs Code status: FULL PCP: [facility] Dispo: Discharge to home with home services Follow-up with Ortho in 10 to 14 days Follow-up with PCP as scheduled Case and plan of care discussed with patient and his family at the bedside in detail and at length All questions answered They are comfortable with discharge to home with home health services They are understanding, comfortable, agreeable with plan of care Subjective Delayed entry, date of service November 10, 2018 Resting in bed, comfortable, not in distress, in good spirits Family at the bedside visiting States he feels fine overall Right hip pain well controlled Ambulating with no problems No BM since day of admission, denies nausea vomiting, abdominal pain, positive flatus Denies chest pain, shortness of breath, palpitations, dizziness Denies other symptoms States he is ready and would like to be discharged today, family agreeable Review of Systems Review of Systems: All systems reviewed & are unremarkable except as noted in HPI & below Physical Exam Physical Exam: General- oriented x 3, not in distress, speaks in sentences with no effort or accessory muscle use Eyes- anicteric Neck- no JVD Lungs- clear breath sounds, no crackles, no wheezing bilaterally Heart- normal rate, regular rhythm; no murmurs Abdomen- normal bowel sounds, nondistended, soft, nontender Extremities- no pretibial edema, no calf tenderness Right hip-dressing in place, drain in place, with serosanguineous output Neuro- alert, oriented x 3; no gross focal neurologic deficits Skin- warm & dry (1) Fracture of right hip Encounter type: initial encounter Fracture type: closed Qualified Code(s): S72.001A - Fracture of unspecified part of neck of right femur, initial encounter for closed fracture
--- NOTE | 2018-11-11 12:42 | Discharge Summary ---
Date of Service November 11, 2018 Admission HPI Per Admitting Provider This is a 58-year-old male with PMH of hypertension and mood disorder who presents after mechanical fall at home onto his right side. Patient was walking in the kitchen when he tripped over a dog gate and fell onto his right side. Patient was on the ground for 1.5 hours thinking that pain would improve and he would be able to get up on his own. Eventually patient allowed family to help him into the car come to ED for further evaluation. Patient was found to be hemodynamically stable with evidence of subcapital fracture right hip. ED provider discussed with [facility] orthopedic surgeon on-call, Dr. Phelps, who ev aluated the patient on the floor and scheduled OR case for tomorrow. Pain is described as a 9/10 and is located at R lateral hip and medial thigh. Just given second dose of Dilaudid. Denies any numbness or paresthesias distal to right hip. Denies any fever, chills, lightheadedness, visual changes, headache, chest pain, palpitations, shortness of breath, nausea, vomiting, abdominal pain, dysuria, diarrhea or constipation. Denies any history of heart disease. History of ENT surgery in the past and tolerated anesthesia without issue. Admission Exam Per Admitting Provider General Appearance: WD/WN, in acute distress from pain, cooperative with interview and exam Head: normocephalic, atraumatic Eyes: normal inspection, PERRL, EOMI ENT: hearing grossly normal, pharynx normal (moist mucous membranes) Neck: supple, no JVD, no adenopathy Respiratory/Chest: lungs clear to auscultation. No wheezes, rales or rhonci. No respiratory distress or accessory muscle use Cardiovascular: regular rate, rhythm, no murmur, normal peripheral pulses Abdomen/GI: normal bowel sounds, soft, non-tender to palpation Extremities/Musculoskelatal: R leg externally rotated. No visible trauma. Did not assess ROM of R hip 2/2 pain. No calf tenderness, normal capillary refill, no pedal edema Neurologic/Psych: alert, normal mood/affect, oriented x 3 Skin: normal color, warm/dry Principal Diagnosis Right hip fracture, status post arthroplasty Discharge Exam General- oriented x 3, not in distress, speaks in sentences with no effort or accessory muscle use Eyes- anicteric Neck- no JVD Lungs- clear breath sounds, no crackles, no wheezing bilaterally Heart- normal rate, regular rhythm; no murmurs Abdomen- normal bowel sounds, nondistended, soft, nontender Extremities- no pretibial edema, no calf tenderness Right hip-dressing in place, drain in place, with serosanguineous output Neuro- alert, oriented x 3; no gross focal neurologic deficits Skin- warm & dry Discharge Data Allergies Allergy/AdvReac Type Severity Reaction Status Date / Time No Known Allergies Allergy Verified 11/09/18 09:33 Consultations 11/10/18 08:00 Consult Case Management - Discharge Planning Routine Procedures Performed Operation Date: 11/09/18 13:00 Actual Procedures p Right Total Hip Arthroplasty Uncemented(Right) - [facility] Course (1) Fracture of right hip: This is a 58-year-old male with PMH of hypertension and mood disorder who presents after mechanical fall at home onto his right side and was found to have subcapital fracture right hip. s/p Arthoplasty November 09, 2018 Remained stable overall postoperatively DVT prophylaxis per Ortho: Aspirin twice a day Evaluated by PT OT, discharge to home with home services Follow-up with Ortho in 10 to 14 days Positive constipation, Senokot as prescribed Advised to drink plenty fluids, high-fiber diet, ambulation, call primary care physician if with no improvement in 1 to 2 days (2) Hypertension: Resume lisinopril Follow-up with PCP as scheduled (3) Mood disorder: Continue Prozac Dispo: Discharge to home with home services Follow-up with Ortho in 10 to 14 days Follow-up with PCP as scheduled Case and plan of care discussed with patient and his family at the bedside in detail and at length All questions answered They are comfortable with discharge to home with home health services They are understanding, comfortable, agreeable with plan of care Total Time Total Time Spent Total Time Spent (In Minutes): 45 minutes Discharge Plan Discharge Items Patient Disposition: Home - Home Health Services Reason For Visit: R HIP FRACTURE Discharge Diagnosis: RIGHT HIP FRACTURE, STATUS POST ARTHROPLASTY Discharge Goals: Diagnostic testing and Therapeutic intervention Activity: As commented below Activity Comment: Continue physical therapy and occupational therapy at home Lifting: Wait until after follow-up appointment Exercise/Sports: Wait until after follow-up appointment Driving/Machine Use Comment: No driving Weightbearing: Right weightbearing Weightbearing Comment: as tolerated Non-emergency contact: Primary Care Provider and Surgeon Call non-emergency contact if: you have any medication questions, your symptoms worsen, your pain is not controlled, your pain is worsening, your pain is unusual for you, your pain is concerning for you, you have a fever, your wound has increased redness, your wound has increased drainage and your wound pain has increased Follow-up/Referrals: Shreyas Pruett MD [Primary Care Provider] - Diet: Heart Healthy [facility] Provider Instructions: Dr Rosen Total Hip Replacement Discharge Instructions Silverlon dressing stays on for 7 days. It must be changed if it is soaked. This can be replaced with gauze and ASHOK Wrap. Otherwise, if not soaked, it's stays on for 7 days. Patients my shower after 2 days if the Silverlon is on because it is waterproof, but not Spa proof. If the Silverlon had to be removed then patient should wait 5 days to shower. Quick showers, not Spa time! After 7 days, please wipe with gauze and peroxide once daily. Do Not Soak. ICE constantly. If a drain is in place, it is to be removed when less than 10cc for 2 consecutive 8 hr shifts. If PING / Prevena device is in place, please see the instructions sheet. Also every Home Nursing Agency, Home PT, and Rehab is aware how this works. If your Home nurse or Therapist says they don't know what this is, have them call [facility] or their manager speech right away. It is meant to protect and help your incision healed faster. Please read the Do's and Don'ts sheet. This paper and the dues and downs are the most important the rest of your paperwork from the hospital is redundant and or confusing. This is the info I want you to take to heart. I typically give you several prescriptions. Some are Eprescribed to pharmacy already. They are: 1. Oxycodone or some form of a narcotic pain pill. Please take. Most important. 2. Aspirin - this is for blood clot prevention, please take. You may have them prescribe something stronger than aspirin, if so, you won't have a script for aspirin daily. 3. Tylenol. 4. Zofran - this is for nausea, take it if you need. 5. Celebrex - helps with inflammation, if not covered by insurance, then use ibuprofen 600 mg 2 to 3 times a day. If any problems or concerns, please call [facility] ( Joselyn if she is your coordinator ) [phone]. Do not go to ER unless directed by your [facility] physician or it's an absolute emergency. Follow up with Dr Rosen in 2 weeks from the day of discharge. Call for an appointment. [phone] Prescriptions: New aspirin [Ecotrin Low Strength] 81 mg Tablet,Delayed Release (Dr/Ec) 81 mg PO BID 30 Days Qty: 60 RF: 0 acetaminophen [Tylenol Extra Strength] 500 mg Tablet 1,000 mg PO Q8 14 Days Qty: 84 RF: 0 cefadroxil 500 mg capsule 500 mg PO BID Qty: 60 RF: 0 sennosides-docusate sodium [Senokot-S] 8.6-50 mg tablet 1 tab PO DAILY PRN (Reason: constipation) Qty: 14 RF: 0 Continued lisinopril 20 mg Tablet 20 mg PO DAILY RF: 0 fluoxetine 20 mg Capsule 20 mg PO DAILY RF: 0 fluticasone propionate [Flonase Allergy Relief] 50 mcg/actuation [place],Suspension 2 spray INTRANASAL DAILY RF: 0 Discontinued meloxicam 15 mg Tablet 15 mg PO DAILY RF: 0 Stand-Alone Forms: [facility], [facility] Discharge Orders: Discharge Order (Routine); Ordered 11/10/18 Ordered By: Luis Manuel Sage Admission Data Admit Date/Time: 11/08/18 17:37 Attending Provider: Luis Manuel Sage Admit Provider: Luis Manuel Sage Primary Care Provider: Shreyas Pruett Other Providers: Saroj Phelps Service: Surgical Services Other Interventions: Discharge Summary Assessment (RN) Last Done: 11/10/18 13:26 DC Date/Time DO NOT enter until pt leaves facility: 11/10/18 16:10
== END 2018-11-10 16:10 | disposition home health service (06) | DRG 470 ==
LOC: ED 15:50 → 3N 17:37
DX: S72.011A Unspecified intracapsular fracture of right femur, initial encounter for closed fracture; I10 Essential (primary) hypertension; F39 Unspecified mood [affective] disorder; W18.09XA Striking against other object with subsequent fall, initial encounter; Y92.009 Unspecified place in unspecified non-institutional (private) residence as the place of occurrence of the external cause